=== PATIENT | male | born 1945 | race African-American/Black ===

== ENCOUNTER 2018-06-03 07:52 | Inpatient (IN) | payer OTHER, MEDICARE ==
[~2018-06-03] VITALS: Ht 172.7 cm; Wt 85.7 kg
[2018-06-03 08:00] VITALS: BP 171/84
[2018-06-03] MEDS ORDERED: ASPIRIN 81MG TABLET PO ONE (08:15)
[2018-06-03 08:42] LABS: BASOPHILS % 0.8 % (0.0-2.0); EOSINOPHILS % 2.7 % (0.0-5.0); HEMOGLOBIN. 11.3 g/dL (14.0-18.0); LYMPHOCYTES % 26.9 % (20.0-50.0); MEAN CORPUSCULAR HEMOGLOBIN 24.2 pg (28.0-32.0); MEAN PLATELET VOLUME 7.5 fl (7.4-10.4); MONOCYTES % 13.9 % (2.0-8.0); NEUTROPHILS % 55.7 % (40.0-76.0); PLATELET 209 x1000/uL (130-400); RED BLOOD CELL COUNT 4.66 mill/uL (4.7-6.1); RED CELL DISTRIBUTION WIDTH 14.4 % (11.6-14.6)
[2018-06-03 08:53] LABS: CHLORIDE 105 mEq/L (98-107)
[2018-06-03 10:56] VITALS: BP 171/84
[2018-06-03] MEDS ORDERED: LISI1TAB9 PO (11:12)
[2018-06-03] MEDS ORDERED: PHEN100C12 PO (11:12)
[2018-06-03 12:00] VITALS: BP 138/72
[2018-06-03] MEDS: PHENYTOIN SODIUM EXTENDED 100MG CAPSULE PO SCH ×2 (13:35→17:54)
[2018-06-03] MEDS: AMLODIPINE 5MG TABLET PO SCH ×2 (13:35→21:22)
[2018-06-03] MEDS: NITROGLYCERIN OINT 1GM/INCH UDPKT TD SCH ×2 (13:35→21:23)
[2018-06-03 13:47] VITALS: BP 138/72
[2018-06-03 16:00] VITALS: BP 120/70
[2018-06-03 17:22] LABS: CREATINE KINASE 128 IU/L (39-308); CREATINE KINASE MB FRACTION 1.4 ng/mL (0.5-3.6); HDL CHOLESTEROL 32 mg/dL (40-59); LDL CHOLESTEROL 90 mg/dL (5-100)
[2018-06-03 20:00] VITALS: BP 105/61
[2018-06-03] MEDS ORDERED: ATORVASTATIN CALCIUM 20MG TABLET PO SCH (21:00)
[2018-06-04] VITALS: BP 134/71
[2018-06-04 04:00] VITALS: BP 121/69
[2018-06-04] MEDS: NITROGLYCERIN OINT 1GM/INCH UDPKT TD SCH (06:00)
[2018-06-04 08:00] VITALS: BP_SYST 127; BP_SYST 79; BP_DIAS 46; BP_DIAS 68
[2018-06-04] MEDS ORDERED: ASPIRIN 81MG TABLET PO SCH (09:00)
[2018-06-04] MEDS: PHENYTOIN SODIUM EXTENDED 100MG CAPSULE PO SCH (09:38)
[2018-06-04] MEDS: AMLODIPINE 5MG TABLET PO SCH (09:38)
[2018-06-04 11:41] VITALS: BP 127/68
[2018-06-04 12:00] VITALS: BP 116/68
== END 2018-06-04 12:15 | disposition home or self-care (01) | DRG 313 ==
LOC: ER 08:51 → 5WST 09:39 → EDBEDREQ 09:41 → ENRESERV 09:51
PROVIDERS: ADMIT Internal Medicine; ATTEND Internal Medicine
DX: R07.89 Other chest pain (principal); E44.1 Mild protein-calorie malnutrition; D64.9 Anemia, unspecified; E78.5 Hyperlipidemia, unspecified; G40.909 Epilepsy, unspecified, not intractable, without status epilepticus; R00.1 Bradycardia, unspecified; H53.2 Diplopia; I10 Essential (primary) hypertension; Z87.891 Personal history of nicotine dependence; Z68.28 Body mass index [BMI] 28.0-28.9, adult; Z79.899 Other long term (current) drug therapy
CPT/HCPCS: 36415; 71045; 80061; 82550; 82553; 83880; 84443; 84484; 93005; 93306; 99285